=== PATIENT | female | born 1975 | race American Indian/Alaskan Native ===

== ENCOUNTER 2019-10-07 01:19 | Emergency (ER) | payer MEDICAID ==
[2019-10-07] MEDS ORDERED: HYDROcodone/ACETAMINOPHEN 5-325 MG TAB PO ONE (02:44)
[2019-10-07] MEDS ORDERED: SODIUM CHLORIDE 0.9% 1000 ML 1,000 ML IV ONE ×2 (02:44→04:08)
--- NOTE | 2019-10-07 02:53 | Emergency Department Report ---
HPI - General Chief Complaint: Fall Time Seen by Provider: 10/07/19 02:37 - HPI HPI: Room 8 The patient is a 43-year-old female present with a chief complaint of dizziness and bilateral leg pain. The patient states today she took her torsemide as prescribed and her legs began cramping. The patient states she began to feel lightheaded and dizzy causing her to fall injuring her left ankle. The patient states later her legs began cramping again and she fell a second time this time injuring her right mckeon. Patient continued to have dizziness prompting her to call EMS. EMS found the patient was hypotensive and transported her to the ED. Patient gives her pain score of 9/10 ED Past Medical Hx - Past Medical History Previous Medical History?: Yes Hx Hypertension: Yes Hx Seizures: Yes Hx Kidney Stones: Yes (Minimal-change disease) - Surgical History Past Surgical History?: Yes Additional Surgical History: Herniorrhaphy, ectopic (patient unaware of which side) - Family History Family history: no significant - Social History Smoking Status: Never Smoker Substance Use Type: None (Denies illicit drug use) - Medications Home Medications: Home Medications Medication Instructions Recorded Confirmed Last Taken Type HYDROcodone/APAP 5-325 [Orange 1 - 2 each PO Q6HR PRN #20 tablet 10/07/19 Unknown Rx 5/325] Ibuprofen [Motrin 800 MG tab] 800 mg PO Q8HR PRN #20 tablet 10/07/19 Unknown Rx ED Review of Systems ROS: Stated complaint: ANKLE PAIN Other details as noted in HPI Constitutional: no symptoms reported Respiratory: no symptoms reported Musculoskeletal: arthralgia Neurological: other (Dizziness) Physical Exam - Physical Exam Vital Signs: Vital Signs 10/07/19 01:35 Temperature 97.8 F Pulse Rate 88 Respiratory 16 Rate Blood Pressure 107/47 Blood Pressure 107/47 [Left] O2 Sat by Pulse 96 Oximetry Physical Exam: GENERAL: The patient is well-developed well-nourished female lying on stretcher not appearing to be in acute distress. [] HEENT: Normocephalic. Atraumatic. Extraocular motions are intact. Patient has moist mucous membranes. NECK: Supple. Trachea midline CHEST/LUNGS: Clear to auscultation. There is no respiratory distress noted. HEART/CARDIOVASCULAR: Regular. There is no tachycardia. There is no gallop rub or murmur. ABDOMEN: Abdomen is soft, nontender. Patient has normal bowel sounds. There is no abdominal distention. SKIN: There is no rash. There is no edema. There is no diaphoresis. NEURO: The patient is awake, alert, and oriented. The patient is cooperative. The patient has normal speech MUSCULOSKELETAL: There is no evidence of acute injury. ED Course Vital Signs 10/07/19 01:35 Temperature 97.8 F Pulse Rate 88 Respiratory 16 Rate Blood Pressure 107/47 Blood Pressure 107/47 [Left] O2 Sat by Pulse 96 Oximetry - Reevaluation(s) Reevaluation #1: 10/07/19 05:54 Systolic blood pressure 109 with standing. ED Medical Decision Making - Lab Data Result diagrams: 10/07/19 02:57 10/07/19 02:57 Laboratory Tests 10/07/19 10/07/19 10/07/19 02:57 02:57 02:57 WBC 14.1 H RBC 5.37 H Hgb 14.1 Hct 43.3 H MCV 81 MCH 26 L MCHC 33 RDW 16.1 H Plt Count 393 Lymph % (Auto) 19.4 Pierce % (Auto) 8.1 H Eos % (Auto) 0.0 Baso % (Auto) 0.7 Lymph # 2.7 Pierce # 1.1 H Eos # 0.0 Baso # 0.1 Seg Neutrophils % 71.8 H Seg Neutrophils # 10.1 H Sodium 131 L Potassium 3.5 L Chloride 90.6 L Carbon Dioxide 29 Anion Gap 15 BUN 23 H Creatinine 1.6 H Estimated GFR 43 BUN/Creatinine Ratio 14 Glucose 127 H Calcium 8.6 HCG, Qual Negative - Radiology Data Radiology results: report reviewed (Right tib-fib x-ray, left ankle x-ray), image reviewed (Right tib-fib x-ray, left ankle x-ray) interpreted by me: Right tib-fib x-ray-no acute fracture Left ankle x-ray-no dislocation seen Findings [facility] [address] [place] [address] XRay Report Signed Patient: KEN GUTIERRES MR#: [id number] 4 : 1975 Acct:[id number] Age/Sex: 43 / F ADM Date: 10/07/19 Loc: ED Attending Dr: Ordering Physician: TOMAS PETER MD Date of Service: 10/07/19 Procedure(s): XR tibia fibula 1V RT Accession Number(s): [id number] cc: TOMAS PETER MD Fluoro Time In Minutes: RIGHT LOWER LEG 1 VIEW INDICATION / CLINICAL INFORMATION: Fall with right lower leg pain. COMPARISON: None available. FINDINGS: BONES / JOINT(S): No acute fracture or subluxation. There are moderate degenerative changes involving the right knee. SOFT TISSUES: No significant abnormality. ADDITIONAL FINDINGS: None. Signer Name: Rafael Rosas MD Signed: 10/07/2019 3:56 AM Workstation Name: [id number] Transcribed By: RT Dictated By: Rafael Rosas MD Electronically Authenticated By: Rafael Rosas MD Signed Date/Time: 10/07/19355 DD/ 4 TD/TT: Findings [facility] [address] [place] [address] XRay Report Signed Patient: KEN GUTIERRES MR#: [id number] 4 : 1975 Acct:[id number] Age/Sex: 43 / F ADM Date: 10/07/19 Loc: ED Attending Dr: Ordering Physician: TOMAS PETER MD Date of Service: 10/07/19 Procedure(s): XR ankle 3+V LT Accession Number(s): [id number] cc: TOMAS PETER MD Fluoro Time In M inutes: LEFT ANKLE 3 VIEWS INDICATION / CLINICAL INFORMATION: Fall with left ankle pain. COMPARISON: None available. FINDINGS: BONES / JOINT(S): There is a small ossific density inferior to the fibula and adjacent to the lateral margin of the distal talus. I suspect that the donor site is the talus. There are small dorsal and plantar calcaneal spurs. SOFT TISSUES: There is mild diffuse soft tissue swelling. ADDITIONAL FINDINGS: None. IMPRESSION: Small chip or avulsion fracture involving the distal talus laterally or, less likely, the distal fibula. Signer Name: Rafael Rosas MD Signed: 10/07/2019 3:55 AM Workstation Name: [id number] Transcribed By: RT Dictated By: Rafael Rosas MD Electronically Authenticated By: Raafel Rosas MD Signed Date/Time: 10/07/19354 DD/ 0353 TD/TT: - Differential Diagnosis Orthostatic hypotension, dehydration, ankle fracture, ankle sprain Critical care attestation.: If time is entered above; I have spent that time in minutes in the direct care of this critically ill patient, excluding procedure time. ED Disposition Clinical Impression: Avulsion fracture of ankle Disposition: TO HOME OR SELFCARE Is pt being admited?: No Does the pt Need Aspirin: No Condition: Stable Instructions: Ankle Fracture (ED) Additional Instructions: Return to the emergency department should you develop worsening symptoms, inability to tolerate food or liquids, high fever or any other concerns Prescriptions: Ibuprofen [Motrin 800 MG tab] 800 mg PO Q8HR PRN #20 tablet PRN Reason: Pain , Severe (7-10) HYDROcodone/APAP 5-325 [Orange 5/325] 1 - 2 each PO Q6HR PRN #20 tablet PRN Reason: Pain Referrals: PRIMARY CARE, [Primary Care Provider] - 3-5 Days RAFAEL OWEN MD [Staff Physician] - 3-5 Days Time of Disposition: 06:01
[2019-10-07 03:26] LABS: Calcium 8.6 mg/dL (8.4-10.2)
[2019-10-07 03:30] LABS: Basophils # (Auto) 0.1 K/mm3 (0.0-0.1); Basophils % (Auto) 0.7 % (0.0-1.8); Hematocrit 43.3 % (30.3-42.9); Hemoglobin 14.1 gm/dl (10.1-14.3); Lymphocytes # (Auto) 2.7 K/mm3 (1.2-5.4); Lymphocytes % (Auto) 19.4 % (13.4-35.0); Mean Corpuscular HGB Conc 33 % (30-34); Mean Corpuscular Volume 81 fl (79-97); Monocytes # (Auto) 1.1 K/mm3 (0.0-0.8); Monocytes % (Auto) 8.1 % (0.0-7.3); Platelet Count 393 K/mm3 (140-440); Red Blood Count 5.37 M/mm3 (3.65-5.03); Red Cell Distribution Width 16.1 % (13.2-15.2)
--- NOTE | 2019-10-07 04:00 | XRay Report ---
LEFT ANKLE 3 VIEWS INDICATION / CLINICAL INFORMATION: Fall with left ankle pain. COMPARISON: None available. FINDINGS: BONES / JOINT(S): There is a small ossific density inferior to the fibula and adjacent to the lateral margin of the distal talus. I suspect that the donor site is the talus. There are small dorsal and p lantar calcaneal spurs. SOFT TISSUES: There is mild diffuse soft tissue swelling. ADDITIONAL FINDINGS: None. IMPRESSION: Small chip or avulsion fracture involving the distal talus laterally or, less likely, the distal fibula. Signer Name: Rafael Rosas MD Signed: 10/07/2019 3:55 AM Workstation Name: [email or web address]
--- NOTE | 2019-10-07 04:01 | XRay Report ---
RIGHT LOWER LEG 1 VIEW INDICATION / CLINICAL INFORMATION: Fall with right lower leg pain. COMPARISON: None available. FINDINGS: BONES / JOINT(S): No acute fracture or subluxation. There are moderate degenerative changes involving the right knee. SOFT TISSUES: No significant abnormality. ADDITIONAL FINDINGS: None. Signer Name: Rafael Rsoas MD Signed: 10/07/2019 3:56 AM Workstation Name: [email or web address]
[2019-10-07 06:05] VITALS: BP 106/58
== END 2019-10-07 06:20 | disposition home or self-care (01) ==
LOC: ED 01:19
DX: S92.152A Displaced avulsion fracture (chip fracture) of left talus, initial encounter for closed fracture (principal); W18.30XA Fall on same level, unspecified, initial encounter; Y93.89 Activity, other specified; Y92.89 Other specified places as the place of occurrence of the external cause; Y99.8 Other external cause status
CPT/HCPCS: 29515; 36415; 73590; 73610; 80048; 84703; 85025; 96360; 96361; 99284; J7030